=== PATIENT | female | born 1950 | race Caucasian/White ===

== ENCOUNTER 2020-01-26 01:11 | Outpatient (CLI) | payer MEDICARE, SELFPAY ==
[2020-01-26 17:58] LABS: SARS-CoV-2 RNA PCR Negative
== END 2020-01-26 01:12 | disposition home or self-care (01) ==
LOC: ANHCOVIDDT 01:11
PROVIDERS: PCP Internal Medicine; Visit Provider Internal Medicine Gastroenterology
DX: Z01.812 Encounter for preprocedural laboratory examination (principal); Z20.828 Contact with and (suspected) exposure to other viral communicable diseases
CPT/HCPCS: 87635; C9803; U0003

== ENCOUNTER 2020-01-29 01:14 | Day surgery (SDC) | payer MEDICARE, SELFPAY ==
[2020-01-22 14:05] VITALS: BMI 29.2
--- NOTE | 2020-01-27 10:11 | WPDANESEPP ---
Anes - Eval Pre Procedure Procedure: Operation Date: 01/29/20 07:30 Proposed Procedures p Screening Colonoscopy - Doyle Diego MD Date/Time: 01/27/20 10:11 Pre Op Diagnosis: Hx of Colon Polyps Patient Data Age: 69 Gender: F Height: 1.6 m Weight: 75 kg Allergies Allergy/AdvReac Type Severity Reaction Status Date / Time amoxicillin Allergy Intermediate Diarrhea Verified 12/27/19 10:34 potassium chloride AdvReac Intermediate dyspepsia Verified 12/27/19 10:34 Home Medications Medication Instructions Recorded Confirmed Type aspirin 81 mg tablet,delayed 81 mg PO DAILY 03/21/19 01/22/20 History release atorvastatin 20 mg tablet 20 mg PO DAILY #90 tablet 03/21/19 01/22/20 Rx hydrochlorothiazide 25 mg tablet 25 mg PO DAILY #90 tablet 04/06/19 01/22/20 Rx losartan 100 mg tablet 100 mg PO DAILY #90 tablet 04/06/19 01/22/20 Rx esomeprazole magnesium 40 mg 40 mg PO DAILY #90 cap 05/16/19 01/22/20 Rx capsule,delayed release amlodipine 10 mg tablet 10 mg PO DAILY #90 tablet 05/31/19 01/22/20 Rx biotin 5,000 mcg SUBLINGUAL DAILY 01/22/20 01/22/20 History calcium carbonate [Antacid Calcium] 215 mg PO HS PRN 01/22/20 01/22/20 History cholecalciferol (vitamin D3) 25 mcg PO WEEKLY 01/22/20 01/22/20 History [Vitamin D3] Patient hx anesthesia problems: none Family hx anesthesia problems: none PMFSH Past Medical History Medical History HTN (hypertension) Smoking history Surgical History Surgical History H/O tubal ligation Family History Family History Sibling Patient's sister is in good health Acute myocardial infarction, Onset Age: 72 Mother Family history of congestive heart failure, Onset Age: 83 Father Acute myocardial infarction, Onset Age: 67 Other Family history of cardiovascular disease Family history of mental disorder Social History Social History Years smoked: 40 Smoking status: Former smoker Tobacco type: cigarettes Second hand tobacco smoke exposure: No Smoking end date: 04/25/13 Alcohol intake: former Substance use: unknown Substance use type: does not use Exam Day of Procedure 01/27/20 10:11
[2020-01-29 06:32] VITALS: BP 149/69; PULSE 78; RESP 18; TEMP 36.6; O2SAT 98
--- NOTE | 2020-01-29 06:56 | SUR.PREOP ---
ATTEMPTED IV ACEESS UNSUCCESSFULLY X2. CRN AWARE. BUS DISPATCHER INTERSTATE TO BE HERE AT 0730 TO START IV.
--- NOTE | 2020-01-29 07:12 | WPDANESEPPF ---
Anes - Initial Pre Proc Eval Procedure: Operation Date: 01/29/20 07:30 Proposed Procedures p Screening Colonoscopy - Doyle Diego MD Date/Time: 01/29/20 07:12 Surgeon: Doyle Diego MD Pre Op Diagnosis: Hx of Colon Polyps Patient Data Age: 69 Gender: F Height: 5 ft 3 in Weight: 67 kg Last Vital Signs Temp 97.9 F 01/29/20 06:32 Pulse 78 01/29/20 06:32 Resp 18 01/29/20 06:32 BP 149/69 H 01/29/20 06:32 Pulse Ox 98 01/29/20 06:32 Allergies Allergy/AdvReac Type Severity Reaction Status Date / Time No Known Allergies Allergy Verified 01/29/20 06:24 Home Medications Medication Instructions Recorded Confirmed Type aspirin 81 mg tablet,delayed 81 mg PO DAILY 03/21/19 01/29/20 History release atorvastatin 20 mg tablet 20 mg PO DAILY #90 tablet 03/21/19 01/29/20 Rx hydrochlorothiazide 25 mg tablet 25 mg PO DAILY #90 tablet 04/06/19 01/29/20 Rx losartan 100 mg tablet 100 mg PO DAILY #90 tablet 04/06/19 01/29/20 Rx esomeprazole magnesium 40 mg 40 mg PO DAILY #90 cap 05/16/19 01/29/20 Rx capsule,delayed release amlodipine 10 mg tablet 10 mg PO DAILY #90 tablet 05/31/19 01/29/20 Rx biotin 5,000 mcg SUBLINGUAL DAILY 01/22/20 01/29/20 History calcium carbonate [Antacid Calcium] 215 mg PO HS PRN 01/22/20 01/29/20 History cholecalciferol (vitamin D3) 25 mcg PO WEEKLY 01/22/20 01/29/20 History [Vitamin D3] Patient hx anesthesia problems: none Family hx anesthesia problems: none PMFSH Past Medical History Medical History HTN (hypertension) Smoking history Surgical History Surgical History H/O tubal ligation Family History Family History Sibling Patient's sister is in good health Acute myocardial infarction, Onset Age: 72 Mother Family history of congestive heart failure, Onset Age: 83 Father Acute myocardial infarction, Onset Age: 67 Other Family history of cardiovascular disease Family history of mental disorder Social History Social History Years smoked: 40 Smoking status: Former smoker Tobacco type: cigarettes Second hand tobacco smoke exposure: No Smoking end date: 04/25/13 Alcohol intake: former Alcohol use details: Rarely Drinks Substance use: unknown Substance use type: does not use Living arrangements: with family Anes - Eval Final PreProcedure Day of Procedure 01/29/20 07:12 Patient weight: obese Heart: regular rate and rhythm Lungs: clear to auscultation Airway: Mallampati scale class II Neurological: alert and oriented Last oral intake: >/= 8 hours ASA classification: III Emergent: no Anesthetic plan: proceed Anesthesia type and monitoring: general GIVS and standard monitoring Informed Consent: The patient's anesthetic plan and its attendant risks and benefits were discussed with the patient/family/POA. Questions were solicited and answers provided to the satisfaction of the patient/family/POA.
--- NOTE | 2020-01-29 07:30 | WPDGICN ---
Assessment and Plan Assessment and plan (1) Hx of colonic polyps: Code(s): Z86.010 - Personal history of colonic polyps Status: Acute Assessment and Plan: Patient has a history of a tubular adenomatous colon polyp removed from colonoscopy while in [place] in 1999 15. Plan is for surveillance colonoscopy at this time. Continued evaluation in approximately 5 year intervals is advised. GI Consult Note Consult date/time: 01/29/20 07:30 HPI: Genie Monge is a 69 year old female Seen in evaluation at the request of Dr. Wm. Acosta. Patient has a history of colon polyps in 2014 while in [place]. Adenomatous colon polyps were identified. Patient presents today for follow-up examination. Her current weight appetite bowel movements are normal. She denies abdominal pain. She has had no bleeding. Family history is noncontributory. Review of Systems Review of Systems: All systems reviewed & are unremarkable except as noted in HPI and below PMFSH Past Medical History Medical History HTN (hypertension) Smoking history Surgical History Surgical History H/O tubal ligation Family History Family History Sibling Patient's sister is in good health Acute myocardial infarction, Onset Age: 72 Mother Family history of congestive heart failure, Onset Age: 83 Father Acute myocardial infarction, Onset Age: 67 Other Family history of cardiovascular disease Family history of mental disorder Social History Social History Years smoked: 40 Smoking status: Former smoker Tobacco type: cigarettes Second hand tobacco smoke exposure: No Smoking end date: 04/25/13 Alcohol intake: former Alcohol use details: Rarely Drinks Substance use: unknown Substance use type: does not use Living arrangements: with family Meds Home Medications and Allergies Home Medications Medication Instructions Recorded Confirmed Type aspirin 81 mg tablet,delayed 81 mg PO DAILY 03/21/19 01/29/20 History release atorvastatin 20 mg tablet 20 mg PO DAILY #90 tablet 03/21/19 01/29/20 Rx hydrochlorothiazide 25 mg tablet 25 mg PO DAILY #90 tablet 04/06/19 01/29/20 Rx losartan 100 mg tablet 100 mg PO DAILY #90 tablet 04/06/19 01/29/20 Rx esomeprazole magnesium 40 mg 40 mg PO DAILY #90 cap 05/16/19 01/29/20 Rx capsule,delayed release amlodipine 10 mg tablet 10 mg PO DAILY #90 tablet 05/31/19 01/29/20 Rx biotin 5,000 mcg SUBLINGUAL DAILY 01/22/20 01/29/20 History calcium carbonate [Antacid Calcium] 215 mg PO HS PRN 01/22/20 01/29/20 History cholecalciferol (vitamin D3) 25 mcg PO WEEKLY 01/22/20 01/29/20 History [Vitamin D3] Allergies Allergy/AdvReac Type Severity Reaction Status Date / Time No Known Allergies Allergy Verified 01/29/20 06:24 Vital Signs Vital Signs - 24 hr 01/29/20 06:32 Temperature 97.9 F Pulse Rate 78 Respiratory Rate 18 Blood Pressure 149/69 H Pulse Oximetry 98 Exam Narrative: Exam Narrative: Physical exam reveals patient to be alert. Vital signs stable. HEENT exam unremarkable. Lungs are clear to auscultation and percussion. Heart is without murmur or extra sounds. Abdominal exam bowel sounds are present soft nontender with no organomegaly. Digital external rectal exam normal.
[2020-01-29] MEDS: LACTATED RINGERS 1,000 ML 150 ML IV CONT (07:31)
[2020-01-29 07:50] VITALS: BP 110/53; PULSE 95; RESP 16; O2SAT 96
[2020-01-29 08:00] VITALS: BP 124/56; PULSE 88; RESP 14; O2SAT 97
[2020-01-29 08:10] VITALS: BP 139/76; PULSE 82; RESP 16; O2SAT 97
== END 2020-01-29 08:21 | disposition home or self-care (01) ==
PROVIDERS: PCP Internal Medicine; Visit Provider Internal Medicine Gastroenterology
PROC: 0DJD8ZZ Inspection of Lower Intestinal Tract, Via Natural or Artificial Opening Endoscopic (ICD-10-PCS; CPT 45378; principal; 2020-01-29 07:30)
DX: Z12.11 Encounter for screening for malignant neoplasm of colon (principal); I10 Essential (primary) hypertension; Z86.010 Personal history of colon polyps; Z87.891 Personal history of nicotine dependence; E66.9 Obesity, unspecified; Z68.26 Body mass index [BMI] 26.0-26.9, adult; D12.2 Benign neoplasm of ascending colon; K64.8 Other hemorrhoids
CPT/HCPCS: 45385; 88305; J2704; J7120

== ENCOUNTER → 2020-03-27 12:02 | Outpatient (CLI) | payer MEDICARE, SELFPAY ==
--- NOTE | ~2020-03-27 | MM_ITS ---
EXAMINATION: MM scrn aparna implant BI w skinny HISTORY: Screening mammogram TECHNIQUE: Craniocaudal and mediolateral oblique 3-D tomosynthesis images with implant displacement a nd synthetic 2-D images were generated. Craniocaudal and mediolateral oblique views of the breasts wi thout implant displacement were obtained using full field digital mammography. CAD analysis was submi tted and interpreted. COMPARISON: 02/10/2019, , 06/06/2014 bilateral implant digital screening mammogram examination s BREAST PARENCHYMAL COMPOSITION: The breasts are heterogeneously dense, which may obscure small masses . FINDINGS: Status post bilateral augmentation mammoplasty. There is no evidence of suspicious mass, ca lcification, or architectural distortion to suggest malignancy in either breast. There has been no martinez spicious interval change. IMPRESSION: 1. No mammographic evidence of malignancy. 2. Recommend routine screening mammography in one year. BI-RADS Category 1: Negative Reviewed, dictated and finalized at location A. OGRAPHY INTERN
== END ==
PROVIDERS: Visit Provider Internal Medicine
DX: Z12.31 Encounter for screening mammogram for malignant neoplasm of breast (principal)
CPT/HCPCS: 77063; 77067

== ENCOUNTER → 2020-07-18 10:28 | Outpatient (CLI) | payer MEDICARE, SELFPAY ==
--- NOTE | ~2020-07-18 | DEXA_ITS ---
Bone Density Report Name: Genie Monge Age: 70 Sex: Female Ethnicity: White Date of : 1950 Indication: osteopenia; height loss; postmenopausal Referring Provider: HEATHER JAY Study: Bone densitometry was performed. Exam Date: July 18, 2020 Accession number: [id number] Bone Density: Region BMD T-score Z-score Classification AP Spine (L1-L4) 0.877 -1.5 0.6 Osteopenia Femoral Neck (Left) 0.645 -1.8 0.0 Osteopenia Total Hip (Left) 0.760 -1.5 0.1 Osteopenia Femoral Neck (Right) 0.735 -1.0 0.8 Normal Total Hip (Right) 0.784 -1.3 0.3 Osteopenia Total Hip Mean 0.772 -1.4 0.2 Osteopenia World Health Organization criteria for BMD impression classify patients as: Normal (T-score at or above -1.0), Osteopenia (T-score between -1.0 and -2.5), or Osteoporosis (T-score at or below -2.5). 10-year Fracture Risk(1): Major Osteoporotic Fracture 11% Hip Fracture 2.0% Reported Risk Factors: [place] (), Neck BMD=0.645, BMI=29.5 (1) FRAX(R) Version 3.08. Fracture probability calculated for an untreated patient. Fracture probability may be lower if the patient has received treatment. Previous Exams: Region Exam Age BMD T-score BMD Change BMD Change Date g/cm2 vs Baseline vs Previous AP Spine(L1-L4) 07/18/2020 70 0.877 -1.5 -0.003 -0.003 04/01/2010 59 0.879 -1.5 Total Hip(Left) 07/18/2020 70 0.760 -1.5 -0.050 0.025 04/01/2010 59 0.735 -1.7 -0.075 -0.075 03/20/2002 51 0.810 -1.1 Total Hip(Right) 07/18/2020 70 0.784 -1.3 -0.016 -0.012 04/01/2010 59 0.796 -1.2 -0.003 -0.003 03/20/2002 51 0.799 -1.2 *Denotes significance at 95% confidence level, LSC for AP Spine = 0.022 g/cm2, LSC for Total Hip = 0.027 g/cm2 Clinical Information Provided by Patient: Has used the following medications: Vitamin D Patient maximum height was 64 Menopause Age: 46 No regular weight bearing exercise Does not regularly consume dairy products Drinks caffeinated beverages Onset of menses at age 11 Number of children 2 Impression: The patient has low bone mass, based on the Left Femoral Neck T-score. The patient has an estimated ten-year risk of hip fracture of 2% and an estimated ten-year risk of major fracture of 11%, based on the WHO FRAX algorithm. No significant bone loss was observed. Discussion: BONE DENSITY IS LOW AT ONE O
== END ==
PROVIDERS: PCP Internal Medicine; Visit Provider Internal Medicine
DX: Z78.0 Asymptomatic menopausal state (principal); M85.88 Other specified disorders of bone density and structure, other site; M85.852 Other specified disorders of bone density and structure, left thigh; M85.851 Other specified disorders of bone density and structure, right thigh
CPT/HCPCS: 77080

== ENCOUNTER → 2021-06-30 12:10 | Outpatient (CLI) | payer MEDICARE, SELFPAY ==
--- NOTE | ~2021-06-30 | MM_ITS ---
EXAMINATION: MM scrn aparna implant BI w skinny HISTORY: Screening mammogram TECHNIQUE: Craniocaudal and mediolateral oblique 3-D tomosynthesis images with implant displacement a nd synthetic 2-D images were generated. Craniocaudal and mediolateral oblique views of the breasts wi thout implant displacement were obtained using full field digital mammography. CAD analysis was submi tted and interpreted. COMPARISON: Comparison to multiple prior studies sequentially, with oldest reviewed study dated 05/11. BREAST PARENCHYMAL COMPOSITION: There are scattered areas of fibroglandular density. FINDINGS: There is no evidence of suspicious mass, calcification, or architectural distortion to sugg est malignancy in either breast. There has been no suspicious interval change. IMPRESSION: 1. No mammographic evidence of malignancy. 2. Recommend routine screening mammography in one year. BI-RADS Category 1: Negative Reviewed, dictated and finalized at location A. E ATTENDANT
== END ==
PROVIDERS: PCP Internal Medicine; Visit Provider Internal Medicine
DX: Z12.31 Encounter for screening mammogram for malignant neoplasm of breast (principal)
CPT/HCPCS: 77063; 77067

== ENCOUNTER 2022-07-27 09:30 | Outpatient (CLI) | payer MEDICARE, SELFPAY ==
[2022-07-27 21:01] LABS: Alanine Aminotransferase 23 U/L (6-35); Albumin Level 4.9 g/dL (3.5-5.1); Alkaline Phosphatase 99 U/L (38-126); Anion Gap 8 mmol/L (8-16); Aspartate Amino Transferase 37 U/L (14-36); Bilirubin,Total 0.6 mg/dL (0.2-1.3); Blood Urea Nitrogen 25 mg/dL (7-17); Calcium 10.5 mg/dL (8.4-10.2); Carbon Dioxide 30 mmol/L (22-30); Chloride 100 mmol/L (98-107); Cholesterol 182 mg/dL (0-200); Estimated Glomerular Filt Rate > 60; Glucose 88 mg/dL (65-110); HDL Direct 53 mg/dL; Potassium 3.1 mmol/L (3.4-5.0); Sodium 138 mmol/L (137-145); Triglycerides 108 mg/dL (<150)
[2022-07-27 21:12] LABS: LDL Cholesterol Direct 83 mg/dL
[2022-07-27 21:34] LABS: Thyroid Stimulating Hormone Reflex 0.017 uIU/mL (0.465-4.68)
[2022-07-27 22:12] LABS: Free T4 Free Thyroxine Reflex 1.44 ng/dL (0.78-2.19)
[2022-07-28 05:01] LABS: Total Triiodothyronine (T3) 1.54 NG/ML (0.97-1.69)
== END 2022-07-27 09:31 | disposition home or self-care (01) ==
LOC: ANHASCLAB 09:32 → ANHGOSHLAB 09:48
PROVIDERS: PCP Family Medicine; Visit Provider Family Medicine
DX: I10 Essential (primary) hypertension (principal); Z13.29 Encounter for screening for other suspected endocrine disorder; Z13.220 Encounter for screening for lipoid disorders
CPT/HCPCS: 36415; 80053; 80061; 84439; 84443; 84480

== ENCOUNTER 2022-08-05 07:04 | Outpatient (CLI) | payer MEDICARE, SELFPAY ==
--- NOTE | ~2022-08-05 | NM_ITS ---
EXAMINATION: NM thyroid scan w uptake DATE: 08/06/2022 12:11 INDICATION: Hyperthyroidism. Thyrotoxicosis. COMPARISON: Chest CT 05/19/2018 TECHNIQUE: 0.462 mCi I-123 was administered orally. Scintigraphic images of the thyroid gland were o btained at 24 hours. Thyroid uptake was calculated by the technologist. FINDINGS: The thyroid uptake is 29% (normal 10-30%), with the right lobe measuring 18% uptake and the left 12%. There is no focal area of decreased or increased activity to suggest hypofunctioning or hyperfunctio geno nodule. IMPRESSION: 1. Normal thyroid scintigraphy and 24-hour iodine uptake. Reviewed, dictated and finalized at location A.
== END 2022-08-05 07:05 | disposition home or self-care (01) ==
PROVIDERS: PCP Family Medicine; Visit Provider Family Medicine
DX: E05.90 Thyrotoxicosis, unspecified without thyrotoxic crisis or storm (principal)
CPT/HCPCS: 78014; A9516

== ENCOUNTER → 2022-08-10 11:44 | Outpatient (CLI) | payer MEDICARE, SELFPAY ==
--- NOTE | ~2022-08-10 | MM_ITS ---
EXAMINATION: MM scrn aparna implant BI w skinny HISTORY: Screening mammogram TECHNIQUE: Craniocaudal and mediolateral oblique 3-D tomosynthesis images with implant displacement a nd synthetic 2-D images were generated. Craniocaudal and mediolateral oblique views of the breasts wi thout implant displacement were obtained using full field digital mammography. CAD analysis was submi tted and interpreted. COMPARISON: 06/30/2021, 03/27/2020, 01/31/2019 BREAST PARENCHYMAL COMPOSITION: The breasts are heterogeneously dense, which may obscure small masses . FINDINGS: There is no evidence of suspicious mass, calcification, or architectural distortion to sugg est malignancy in either breast. There has been no suspicious interval change. IMPRESSION: 1. No mammographic evidence of malignancy. 2. Recommend routine screening mammography in one year. BI-RADS Category 1: Negative Reviewed, dictated and finalized at location A.
== END ==
PROVIDERS: PCP Family Medicine; Visit Provider Family Medicine
DX: Z12.31 Encounter for screening mammogram for malignant neoplasm of breast (principal)
CPT/HCPCS: 77063; 77067

== ENCOUNTER 2022-09-17 09:50 | Outpatient (CLI) | payer MEDICARE, SELFPAY ==
[2022-09-17 11:53] LABS: Anion Gap 8 mmol/L (8-16); Blood Urea Nitrogen 22 mg/dL (7-17); Calcium 9.7 mg/dL (8.4-10.2); Carbon Dioxide 29 mmol/L (22-30); Chloride 103 mmol/L (98-107); Estimated Glomerular Filt Rate > 60; Glucose 86 mg/dL (65-110); Potassium 3.4 mmol/L (3.4-5.0); Sodium 140 mmol/L (137-145)
[2022-09-17 12:25] LABS: Thyroid Stimulating Hormone Reflex 0.028 uIU/mL (0.465-4.68)
[2022-09-17 14:48] LABS: Free T4 Free Thyroxine Reflex 1.48 ng/dL (0.78-2.19)
[2022-09-17 16:06] LABS: Total Triiodothyronine (T3) 1.63 NG/ML (0.97-1.69)
== END 2022-09-17 09:51 | disposition home or self-care (01) ==
LOC: ANHGOSHLAB 09:51
PROVIDERS: PCP Family Medicine; Visit Provider Family Medicine
DX: Z13.29 Encounter for screening for other suspected endocrine disorder (principal); E87.6 Hypokalemia
CPT/HCPCS: 36415; 80048; 84439; 84443; 84480

== ENCOUNTER → 2022-10-12 10:23 | Outpatient (CLI) | payer MEDICARE, SELFPAY ==
--- NOTE | ~2022-10-12 | DEXA_ITS ---
Bone Density Report Name: KIRA GRANGER Age: 72 Sex: Female Ethnicity: White Date of : 1950 Indication: osteopenia; postmenopausal Referring Provider: DEVIN PABLO Study: Bone densitometry was performed. Exam Date: October 12, 2022 Accession number: [id number] Bone Density: Region BMD T-score Z-score Classification AP Spine (L1-L4) 0.906 -1.3 1.0 Osteopenia Femoral Neck (Left) 0.623 -2.0 0.0 Osteopenia Total Hip (Left) 0.721 -1.8 -0.1 Osteopenia Femoral Neck (Right) 0.754 -0.9 1.1 Normal Total Hip (Right) 0.760 -1.5 0.2 Osteopenia Total Hip Mean 0.741 -1.7 0.1 Osteopenia World Health Organization criteria for BMD impression classify patients as: Normal (T-score at or above -1.0), Osteopenia (T-score between -1.0 and -2.5), or Osteoporosis (T-score at or below -2.5). 10-year Fracture Risk(1): Major Osteoporotic Fracture 13% Hip Fracture 3.1% Reported Risk Factors: [place] (), Neck BMD=0.623, BMI=26.6 (1) FRAX(R) Version 3.08. Fracture probability calculated for an untreated patient. Fracture probability may be lower if the patient has received treatment. Previous Exams: Region Exam Age BMD T-score BMD Change BMD Change Date g/cm2 vs Baseline vs Previous AP Spine(L1-L4) 10/12/2022 72 0.906 -1.3 0.027* 0.029* 07/18/2020 70 0.877 -1.5 -0.003 -0.003 04/01/2010 59 0.879 -1.5 Total Hip(Left) 10/12/2022 72 0.721 -1.8 -0.089 -0.039* 07/18/2020 70 0.760 -1.5 -0.050 0.025 04/01/2010 59 0.735 -1.7 -0.075 -0.075 03/20/2002 51 0.810 -1.1 Total Hip(Right) 10/12/2022 72 0.760 -1.5 -0.040 -0.024 07/18/2020 70 0.784 -1.3 -0.016 -0.012 04/01/2010 59 0.796 -1.2 -0.003 -0.003 03/20/2002 51 0.799 -1.2 *Denotes significance at 95% confidence level, LSC for AP Spine = 0.022 g/cm2, LSC for Total Hip = 0.027 g/cm2 Clinical Information Provided by Patient: Has used the following medications: Vitamin D Patient maximum height was 64.0 Menopause Age: 46 No regular weight bearing exercise Drinks caffeinated beverages Onset of menses at age 11 Number of children 2 Impression: The patient has low bone mass, based on the Left Femoral Neck T-score. The patient has an estimated ten-year risk of hip fracture of 3.1% and an estimated ten-year risk of
== END ==
PROVIDERS: PCP Family Medicine; Visit Provider Family Medicine
DX: Z78.0 Asymptomatic menopausal state (principal); M85.88 Other specified disorders of bone density and structure, other site; Z13.820 Encounter for screening for osteoporosis
CPT/HCPCS: 77080

== ENCOUNTER 2023-08-04 11:26 | Outpatient (CLI) | payer MEDICARE, SELFPAY ==
[2023-08-04 14:57] LABS: Alanine Aminotransferase 22 U/L (6-35); Albumin Level 4.5 g/dL (3.5-5.1); Alkaline Phosphatase 92 U/L (38-126); Anion Gap 7 mmol/L (4-12); Aspartate Amino Transferase 34 U/L (14-36); Bilirubin,Total 0.7 mg/dL (0.2-1.3); Blood Urea Nitrogen 20 mg/dL (7-17); Calcium 10.5 mg/dL (8.4-10.2); Carbon Dioxide 29 mmol/L (22-30); Chloride 103 mmol/L (98-107); Cholesterol 146 mg/dL (0-200); Estimated Glomerular Filt Rate > 60; Glucose 95 mg/dL (65-110); HDL Direct 47 mg/dL; Potassium 3.5 mmol/L (3.4-5.0); Sodium 139 mmol/L (137-145); Triglycerides 118 mg/dL (<150)
[2023-08-04 15:08] LABS: LDL Cholesterol Direct 78 mg/dL
[2023-08-04 20:36] LABS: Thyroid Stimulating Hormone Reflex < 0.015 uIU/mL (0.465-4.68)
[2023-08-04 21:34] LABS: Free T4 Free Thyroxine Reflex 1.69 ng/dL (0.78-2.19)
== END 2023-08-04 11:27 | disposition home or self-care (01) ==
LOC: ANHGOSHLAB 11:27
PROVIDERS: PCP Family Medicine; Visit Provider Family Medicine
DX: I10 Essential (primary) hypertension (principal); Z13.228 Encounter for screening for other metabolic disorders; Z13.220 Encounter for screening for lipoid disorders; Z13.29 Encounter for screening for other suspected endocrine disorder
CPT/HCPCS: 36415; 80053; 80061; 84439; 84443; 84480

== ENCOUNTER 2023-08-16 09:17 | Outpatient (CLI) | payer MEDICARE, SELFPAY | END 2023-08-16 09:18 | disposition home or self-care (01) | LOC: ANHGOSHLAB 09:18 | PROVIDERS: Visit Provider Family Medicine | DX: R79.89 Other specified abnormal findings of blood chemistry (principal); I10 Essential (primary) hypertension | CPT/HCPCS: 36415; 84443 ==

== ENCOUNTER 2023-08-16 09:59 | Outpatient (CLI) | payer MEDICARE, SELFPAY ==
--- NOTE | ~2023-08-16 | MM_ITS ---
EXAMINATION: MM scrn aparna implant BI w skinny HISTORY: Screening mammogram TECHNIQUE: Craniocaudal and mediolateral oblique 3-D tomosynthesis images with implant displacement a nd synthetic 2-D images were generated. Craniocaudal and mediolateral oblique views of the breasts wi thout implant displacement were obtained using full field digital mammography. CAD analysis was submi tted and interpreted. COMPARISON: August 10, 2022, June 30, 2021 bilateral implant screening mammogram examinations BREAST PARENCHYMAL COMPOSITION: The breasts are heterogeneously dense, which may obscure small masses . FINDINGS: Status post bilateral augmentation mammoplasty. Scattered bilateral benign calcifications. There is suggestion of subtle retraction in the left nipple area. Diagnostic left mammogram is recomm ended, with ultrasound if required. Otherwise there is no evidence of suspicious mass, calcification, or architectural distortion to sugg est malignancy in either breast. There has been no other suspicious interval change. IMPRESSION: 1. Subtle nipple area retraction suggested on the left 2. Diagnostic left mammogram is recommended, with ultrasound if required BI-RADS Category 0: Incomplete: Needs additional imaging evaluation. Reviewed, dictated and finalized at location A.
== END 2023-08-16 10:00 ==
PROVIDERS: PCP Family Medicine; Visit Provider Family Medicine
DX: Z12.31 Encounter for screening mammogram for malignant neoplasm of breast (principal); R92.8 Other abnormal and inconclusive findings on diagnostic imaging of breast
CPT/HCPCS: 77063; 77067

== ENCOUNTER 2023-09-16 08:13 | Outpatient (CLI) | payer MEDICARE, SELFPAY ==
--- NOTE | ~2023-09-16 | MMUS_ITS ---
EXAMINATION: MM diag aparna implant LT w skinny, US breast LT complete HISTORY: Nipple retraction TECHNIQUE: Implant left ML view. Additional 3-D tomosynthesis images of the left breast were performe d and synthetic 2-D images were generated. CAD analysis was submitted and interpreted. High resolutio n complete left breast ultrasound examination including all 4 quadrants and subareolar area was perfo rmed. COMPARISON: 07/31/2022, 06/30/2021, 03/27/2020, 01/31/2019, 11/24/2017 bilateral implants screening mammogram examinations FINDINGS: MAMMOGRAPHIC FINDINGS: No definite significant change is noted compared to prior mammograms dating back to 11/24/2017. ULTRASOUND: No focal suspicious mass or shadowing is evident. IMPRESSION: 1. Probable benign examinations 2. Six-month diagnostic left mammogram and left breast ultrasound follow-up are recommended BI-RADS category 3, probably benign findings. Reviewed, dictated and finalized at location B. IMPRESSION: 1. Probable benign examinations 2. Six-month diagnostic left mammogram and left breast ultrasound follow-up are recommended BI-RADS category 3, probably benign findings.
== END 2023-09-16 08:14 ==
LOC: MICIMG 08:14
PROVIDERS: PCP Family Medicine; Visit Provider Family Medicine
DX: N64.53 Retraction of nipple (principal); R92.8 Other abnormal and inconclusive findings on diagnostic imaging of breast
CPT/HCPCS: 76641; 77061; 77065; G0279

== ENCOUNTER 2023-10-11 00:29 | Day surgery (SDC) | payer MEDICARE, SELFPAY ==
[2023-09-28 13:41] VITALS: BMI 26.5
[2023-10-11 11:22] VITALS: BP 159/62; PULSE 69; RESP 16; TEMP 36.4; O2SAT 100
[2023-10-11] MEDS: LACTATED RINGERS 1,000 ML 150 ML IV CONT (11:25)
--- NOTE | 2023-10-11 12:44 | WPDANESEPPF ---
Anes - Initial Pre Proc Eval Procedure: Operation Date: 10/11/23 12:30 Proposed Procedures p Esophagogastroduodenoscopy - Andrew Looney MD Date/Time: 10/11/23 12:44 Surgeon: Andrew Looney MD Pre Op Diagnosis: GERD without esophagitis Patient Data Age: 73 Gender: F Height: 1.6 m Weight: 68.9 kg Last Vital Signs Temp 36.4 C L 10/11/23 11:22 Pulse 69 10/11/23 11:22 Resp 16 10/11/23 11:22 BP 159/62 H 10/11/23 11:22 Pulse Ox 100 10/11/23 11:22 O2 Del Method Room Air 10/11/23 11:22 Allergies Allergy/AdvReac Type Severity Reaction Status Date / Time No Known Allergies Allergy Verified 10/11/23 11:17 Home Medications Medication Instructions Recorded Confirmed Type aspirin 81 mg tablet,delayed 81 mg PO DAILY 03/21/19 10/11/23 History release (Adult Aspirin Regimen) biotin 5,000 mcg sublingual tablet 5,000 mcg sublingual DAILY 01/22/20 10/11/23 History atorvastatin 20 mg tablet See Rx Instructions .Route 02/15/23 10/11/23 Rx .COMPLEX #90 tabs pantoprazole 40 mg tablet,delayed 40 mg PO QAM #90 tabs 02/15/23 10/11/23 Rx release losartan 100 mg tablet 100 mg PO DAILY #100 tabs 05/16/23 10/11/23 Rx hydrochlorothiazide 25 mg tablet 25 mg PO DAILY #100 tabs 08/08/23 10/11/23 Rx minoxidil 5 % topical foam See Rx Instructions topical 08/11/23 10/11/23 Rx .COMPLEX #60 grams amlodipine 10 mg tablet See Rx Instructions .Route 09/13/23 10/11/23 Rx .COMPLEX #90 tabs famotidine 40 mg tablet 40 mg PO QHS #90 tabs 09/22/23 10/11/23 Rx calcium citrate 600 mg PO BID 09/28/23 10/11/23 History cholecalciferol (vitamin D3) 125 125 mcg PO DAILY 09/28/23 10/11/23 History mcg (5,000 unit) tablet (Vitamin D3) Patient hx anesthesia problems: none Family hx anesthesia problems: none Results Review: All pre-operative results and documents have been reviewed as part of the pre-operative evaluation. [facility] Past Medical History Medical History HTN (hypertension) Retraction of left nipple Smoking history Surgical History Surgical History (Updated 10/11/23 @ 12:44 by Jesus Yeager MD) H/O breast augmentation H/O tubal ligation Family History Family History Sibling Patient's sister is in good health Acute myocardial infarction, Onset Age: 72 Mother Family history of congestive heart failure, Onset Age: 83 Father Acute myocardial infarction, Onset Age: 67 Other Family history of cardiovascular disease Family history of mental disorder Social History Social History Years smoked: 30 Smoking status: Former smoker Tobacco type: cigarettes Second hand tobacco smoke exposure: No Smoking end date: 04/25/13 Alcohol intake: former Alcohol use details: Rarely Drinks Substance use: current Substance use type: marijuana Other substance usage details: Gummies for sleep Lack of Transportation: No Lack of Food: Never True Current Housing: I Have Housing Concerned About Future Housing: No Difficulty Paying Gas/Electric Bills: No Difficulty Paying for Meds: No Currently Unemployed: No Education: High School Diploma/GED Difficulty w/ Childcare or Family Care: No Living arrangements: with family Spiritual care concerns: No Anes - Eval Final PreProcedure Day of Procedure 10/11/23 12:44 Patient weight: overweight Heart: regular rate and rhythm Lungs: clear to auscultation Airway: Mallampati scale class II Neurological: alert and oriented Last oral intake: >/= 8 hours ASA classification: III Emergent: no Anesthetic plan: proceed Anesthesia type and monitoring: general GIVS and standard monitoring Results Review: All pre-operative results and documents have been reviewed as part of the pre-operative evaluation. Informed Consent: The patient's anestheti
--- NOTE | 2023-10-11 13:25 | SUR.PREOP ---
1230 Patient updated on procedure delay- denies any needs at this time.
--- NOTE | 2023-10-11 13:52 | PM.HPGS ---
History of Present Illness History of Present Illness Consent: Risks, benefits, and alternatives have been discussed and questions answered. Patient agrees to proceed with procedure. Chief complaint: GERD without esophagitis Narrative: Genie Monge is a 73 year old female with gerd on ppi, worse symptoms at night when lying down in bed, last EGD 8 years ago and had hiatal hernia Review of Systems Review of Systems: All systems reviewed & are unremarkable except as noted in HPI and below PMFSH Past Medical History Medical History HTN (hypertension) Retraction of left nipple Smoking history Surgical History Surgical History (Updated 10/11/23 @ 12:44 by Jesus Yeager MD) H/O breast augmentation H/O tubal ligation Family History Family History Sibling Patient's sister is in good health Acute myocardial infarction, Onset Age: 72 Mother Family history of congestive heart failure, Onset Age: 83 Father Acute myocardial infarction, Onset Age: 67 Other Family history of cardiovascular disease Family history of mental disorder Social History Social History Years smoked: 30 Smoking status: Former smoker Tobacco type: cigarettes Second hand tobacco smoke exposure: No Smoking end date: 04/25/13 Alcohol intake: former Alcohol use details: Rarely Drinks Substance use: current Substance use type: marijuana Other substance usage details: Gummies for sleep Lack of Transportation: No Lack of Food: Never True Current Housing: I Have Housing Concerned About Future Housing: No Difficulty Paying Gas/Electric Bills: No Difficulty Paying for Meds: No Currently Unemployed: No Education: High School Diploma/GED Difficulty w/ Childcare or Family Care: No Living arrangements: with family Spiritual care concerns: No Meds Home Medications and Allergies Home Medications Medication Instructions Recorded Confirmed Type aspirin 81 mg tablet,delayed 81 mg PO DAILY 03/21/19 10/11/23 History release (Adult Aspirin Regimen) biotin 5,000 mcg sublingual tablet 5,000 mcg sublingual DAILY 01/22/20 10/11/23 History atorvastatin 20 mg tablet See Rx Instructions .Route 02/15/23 10/11/23 Rx .COMPLEX #90 tabs pantoprazole 40 mg tablet,delayed 40 mg PO QAM #90 tabs 02/15/23 10/11/23 Rx release losartan 100 mg tablet 100 mg PO DAILY #100 tabs 05/16/23 10/11/23 Rx hydrochlorothiazide 25 mg tablet 25 mg PO DAILY #100 tabs 08/08/23 10/11/23 Rx minoxidil 5 % topical foam See Rx Instructions topical 08/11/23 10/11/23 Rx .COMPLEX #60 grams amlodipine 10 mg tablet See Rx Instructions .Route 09/13/23 10/11/23 Rx .COMPLEX #90 tabs famotidine 40 mg tablet 40 mg PO QHS #90 tabs 09/22/23 10/11/23 Rx calcium citrate 600 mg PO BID 09/28/23 10/11/23 History cholecalciferol (vitamin D3) 125 125 mcg PO DAILY 09/28/23 10/11/23 History mcg (5,000 unit) tablet (Vitamin D3) Allergies Allergy/AdvReac Type Severity Reaction Status Date / Time No Known Allergies Allergy Verified 10/11/23 11:17 Vital Signs Vital Signs - 24 hr 10/11/23 11:22 Temperature 97.5 F L Pulse Rate 69 Respiratory Rate 16 Blood Pressure 159/62 H Pulse Oximetry 100 Oxygen Delivery Room Air Exam Const: General: comfortable and no acute distress HENMT: Face/Nose/Sinus: Normal nares present Eyes: General: appearance normal, both eyes and all related structures Neck: Neck: no JVD Resp: Auscultation: clear to auscultation bilaterally Cardio: Rate: regular rate Rhythm: regular rhythm GI: Inspection: non-distended GI Palp: Yes Soft to palpation Skin: General skin exam: normal color Neuro: General: gait normal Speech: normal speech Extrem: General: normal to inspection Psych: Mental Status: mental status grossly normal Assessment a
[2023-10-11 14:14] VITALS: BP 108/51; PULSE 81; RESP 20; O2SAT 98
[2023-10-11 14:24] VITALS: BP 115/55; PULSE 82; RESP 20; O2SAT 100
[2023-10-11 14:34] VITALS: BP 129/60; PULSE 76; RESP 20; O2SAT 100
== END 2023-10-11 14:44 | disposition home or self-care (01) ==
PROVIDERS: PCP Family Medicine; Referring Provider Family Medicine; Visit Provider Internal Medicine Gastroenterology
PROC: 0DJ08ZZ Inspection of Upper Intestinal Tract, Via Natural or Artificial Opening Endoscopic (ICD-10-PCS; CPT 43235; principal; 2023-10-11 12:30)
DX: K29.50 Unspecified chronic gastritis without bleeding (principal); K29.70 Gastritis, unspecified, without bleeding; K21.9 Gastro-esophageal reflux disease without esophagitis; I10 Essential (primary) hypertension; Z87.891 Personal history of nicotine dependence; F12.90 Cannabis use, unspecified, uncomplicated; Z79.82 Long term (current) use of aspirin
CPT/HCPCS: 43239; 88305; J2704; J7120

== ENCOUNTER 2024-03-15 14:24 | Emergency (ER) | payer MEDICARE, SELFPAY ==
--- NOTE | 2024-03-15 14:48 | ED.URI ---
HPI - URI/Sore Throat General Chief Complaint: Upper Respiratory Infection Stated Complaint: cold symptoms Time Seen by Provider: 03/15/24 14:55 Source: patient, RN notes reviewed and old records reviewed Mode of arrival: ambulatory Limitations: no limitations History of Present Illness HPI Narrative: 73 year old female who presents to [facility] care with complaints of 10 day history of cough, sore throat, nasal congestion and drainage with no fevers noted. Patient reports that she has had some upper back discomfort with her cough. Patiet reports that she has taken some OTC night time cold and flu medication.Patient reports that she is feeling a little better but family nagged her to come and get check out. MD elicited complaint: cough, sore throat, rhinorrhea and nasal congestion Onset (ago): day(s) (10) Severity: moderate Able to tolerate fluids by mouth: Yes Treatments prior to arrival: other (night time cold and flu medication) Related Data Home Medications Medication Instructions Recorded Confirmed aspirin 81 mg tablet,delayed 81 mg PO DAILY 03/21/19 03/15/24 release (Adult Aspirin Regimen) biotin 5,000 mcg sublingual tablet 5,000 mcg sublingual DAILY 01/22/20 03/15/24 calcium citrate 600 mg PO BID 09/28/23 03/15/24 cholecalciferol (vitamin D3) 125 125 mcg PO DAILY 09/28/23 03/15/24 mcg (5,000 unit) tablet (Vitamin D3) Allergies Allergy/AdvReac Type Severity Reaction Status Date / Time No Known Allergies Allergy Verified 03/15/24 15:02 Review of Systems Review of Systems: CONSTITUTIONAL: Denies malaise, chills, sweats, or fever. EYES: Denies visual changes, redness, or discharge. ENT: Reports rhinorrhea, congestion, sinus pain, no otalgia and positive sore throat. CARDIOVASCULAR: Denies chest pain, palpitations, or edema. RESPIRATORY: Reports cough.? Denies dyspnea. states some upper back pain with cough GASTROINTESTINAL: Denies abdominal pain, nausea, vomiting, diarrhea SKIN: Denies rash or itching. MUSCULOSKELETAL: Denies myalgia. NEUROLOGIC: Denies headache. All systems reviewed & are unremarkable except as noted in HPI and below PMFSH Past Medical History Medical History Chronic GERD Dyslipidemia, goal LDL below 130 HTN (hypertension) Hx of colonic polyps Hx of skin malignancy Obstructive sleep apnea Retraction of left nipple Smoking history Surgical History Surgical History H/O breast augmentation H/O tubal ligation Family History Family History Sibling Patient's sister is in good health Acute myocardial infarction, Onset Age: 72 Mother Family history of congestive heart failure, Onset Age: 83 Father Acute myocardial infarction, Onset Age: 67 Other Family history of cardiovascular disease Family history of mental disorder Social History Social History Years smoked: 30 Smoking status: Former smoker Tobacco type: cigarettes Second hand tobacco smoke exposure: No Smoking end date: 04/25/13 Alcohol intake: former Alcohol use details: Rarely Drinks Substance use: current Substance use type: marijuana Other substance usage details: Gummies for sleep Lack of Transportation: No Lack of Food: Never True Current Housing: I Have Housing Concerned About Future Housing: No Difficulty Paying Gas/Electric Bills: No Difficulty Paying for Meds: No Currently Unemployed: No Education: High School Diploma/GED Difficulty w/ Childcare or Family Care: No Living arrangements: with family Spiritual care concerns: No Comments At time of signature, agree with nursing past medical, surgical, social and family history. There is no relevant family history pertinent to the presenting complaint Exam Narrative: GENERAL: Well-appearing, well-nourished, and in no acute distress. HEAD: Normocephalic EYES: PERRLA, conjunctivae clear ENT: Nares clear, turbinates edematous and erythematous, clear discharge. Mucous membranes moist. TM pearly pierce with dull light reflex bilaterally; no tragal tenderness. Oropharynx erythematous without lesions. Tonsils not enlarged and without exudate, no drooling, no hoarseness, no trismus, uvula midline.post nasal drainage noted NECK: Supple. No lymphadenopathy CHEST: Clear to auscultation, breath sounds equal. No wheezing, rhonchi, rales, or stridor. No respiratory distress, speaks in full sentences.cough noted, SAO2 99% on room air HEART: Regular rate and rhythm. No murmur heard. SKIN: Warm, dry, no rash. NEURO: Alert and oriented x3. PSYCH: Normal mood and affect Course Course Emergency Course: Patient is aware of diagnosis, understands and agrees to treatment plan.? Anticipatory guidance given.? Patient agrees to follow-up as directed and is aware of reasons to seek care at the emergency department. Portions of this record may have been created with voice recognition software Level of Care: Express Care Visit Vital Signs Vital signs: Vital Signs Temperature 36.8 C 03/15/24 14:50 Pulse Rate 94 03/15/24 14:50 Respiratory Rate 16 03/15/24 14:50 Blood Pressure 149/75 H 03/15/24 14:50 Pulse Oximetry 99 03/15/24 14:50 Temperature 36.8 C 03/15/24 14:50 Pulse Rate 94 03/15/24 14:50 Respiratory Rate 16 03/15/24 14:50 Blood Pressure 149/75 H 03/15/24 14:50 Pulse Oximetry 99 03/15/24 14:50 Reviewed MDM - URI/Sore Throat MDM Narrative Medical decision making narrative: Differential diagnosis considered: Millard virus, strep pharyngitis, allergic rhinitis, upper respiratory tract infection, sinusitis, rhinosinusitis, nasopharyngitis. viral pharyngitis, otitis media, otitis externa, pneumonia, bronchitis, viral cough syndrome, viral syndrome, and influenza.? Exam findings show no acute concerns or changes; patient is non-toxic appearing and is in no distress.? Patient is appropriate for outpatient treatment and follow-up. Differential Diagnosis Differential diagnosis: Likely upper respiratory infection, sinusitis, viral infection, pharyngitis and other (strep pharyngitis, cough) Lab Data Attestation: I reviewed the patient's lab results. Critical Care Time Critical Care Time Critical Care Time: No Discharge Plan Discharge Clinical Impression: Upper respiratory infection with cough and congestion Patient Disposition: Home, Self-Care Condition: Stable Instructions: Antibiotic Form, Upper Respiratory Infection (ED), Acute Cough (ED) Additional Instructions: Increase fluids especially juices and water Over-Increase fluids especially juices and water [id number] cough and cold medicine of your choice for your symptoms Tylenol or ibuprofen for any fever pain Zyrtec Claritin or Sulma daily for sinus drainage may include Coricidin brand Steroids as directed--take with food heat to the face 20-30 minutes 4-6 times a day for pain Salt water gargles, throat lozenges or throat sprays as desired Antibiotic as directed--finished the medication If your symptoms persist, change or worsen significantly before you can contact your personal physician then please, without delay, go to the emergency department for further evaluation. Follow-up with PCP in 7-10 days or sooner if needed Follow up with PCP soon in regards to your blood pressure which is elevated above threshold for referral. Blood pressure above 120/80 may indicate pre-hypertension. Prescriptions: New methylprednisolone [Medrol (Tl)] 4 mg tablets,dose pack See Rx Instructions .ROUTE .COMPLEX Qty: 21 0RF Rx Instructions: orally per package directions take with food azithromycin 250 mg tablet See Rx Instructions .ROUTE .COMPLEX Qty: 6 0RF Rx Instructions: For 250 mg dose pack: take 500 mg today (day 1), then 250 mg for 4 days (days 2-5) No Action biotin 5,000 mcg Tablet, Sublingual 5,000 mcg SUBLINGUAL DAILY cholecalciferol (vitamin D3) [Vitamin D3] 125 mcg (5,000 unit) Tablet 125 mcg PO DAILY calcium citrate 600 mg PO BID aspirin [Adult Aspirin Regimen] 81 mg tablet,delayed release (DR/EC) 81 mg PO DAILY minoxidil 5 % foam See Rx Instructions topical .COMPLEX Qty: 60 0RF Rx Instructions: apply 1 pump on scalp topically; losartan 100 mg tablet 100 mg PO DAILY Qty: 100 1RF atorvastatin 20 mg tablet See Rx Instructions .ROUTE .COMPLEX Qty: 100 3RF Dose Instruction: TAKE 1 TABLET BY MOUTH DAILY Rx Instructions: TAKE 1 TABLET BY MOUTH DAILY amlodipine 10 mg tablet See Rx Instructions .ROUTE .COMPLEX Qty: 100 1RF Dose Instruction: TAKE 1 TABLET BY MOUTH DAILY Rx Instructions: TAKE 1 TABLET BY MOUTH DAILY hydrochlorothiazide 25 mg tablet 25 mg PO DAILY Qty: 100 1RF pantoprazole 40 mg tablet,delayed release (DR/EC) See Rx Instructions .ROUTE .COMPLEX Qty: 100 2RF Dose Instruction: TAKE 1 TABLET BY MOUTH EVERY MORNING Rx Instructions: TAKE 1 TABLET BY MOUTH EVERY MORNING famotidine 40 mg tablet 40 mg PO QHS Qty: 90 1RF Follow-up/Referrals: Jose Martin Mendez DO [Primary Care Provider] - Time of Disposition: 15:14 Quality Mariano Coma Scale Eyes: Open Verbal: Oriented and Alert Motor: Follows Commands Mariano Coma Total Score: 15
[2024-03-15 14:50] VITALS: BP 149/75; PULSE 94; RESP 16; TEMP 36.8; O2SAT 99
== END 2024-03-15 15:22 | disposition home or self-care (01) ==
PROVIDERS: Emergency Provider Registered Nurse; PCP Family Medicine
DX: J06.9 Acute upper respiratory infection, unspecified (principal); R05.9 Cough, unspecified; Z87.891 Personal history of nicotine dependence; I10 Essential (primary) hypertension; K21.9 Gastro-esophageal reflux disease without esophagitis; E78.5 Hyperlipidemia, unspecified; Z79.82 Long term (current) use of aspirin
CPT/HCPCS: 99213; G0463

== ENCOUNTER 2024-03-19 08:53 | Outpatient (CLI) | payer MEDICARE, SELFPAY ==
--- NOTE | ~2024-03-19 | MMUS_ITS ---
EXAMINATION: MM diag aparna implant LT w skinny, US breast LT complete HISTORY: Follow-up left breast asymmetry TECHNIQUE: Additional 3-D tomosynthesis images of the left breast were performed and synthetic 2-D im ages were generated. CAD analysis was submitted and interpreted. High resolution complete left breast ultrasound was performed. COMPARISON: Comparison to multiple prior studies sequentially, with oldest reviewed study dated 12/2018. BREAST PARENCHYMAL COMPOSITION: Not dense: There are scattered areas of fibroglandular density. FINDINGS: MAMMOGRAPHIC FINDINGS: There is a left breast implant. There are no suspicious masses, calcifications or architectural disto rtion to suggest malignancy. ULTRASOUND: Complete US of all 4 quadrants of the left breast/s and retroareolar region was reviewed. At 10:00, 1 cm from the nipple there is a 5 mm cyst. No suspicious masses to suggest malignancy. IMPRESSION: 1. No evidence for malignancy in the left breast. 2. Routine yearly screening mammogram and regular clinical breast examination are recommended. BI-RADS Category 2: Benign finding(s). Reviewed, dictated and finalized at location [] TICS TESTING TECHNICIAN IMPRESSION: 1. No evidence for malignancy in the left breast. 2. Routine yearly screening mammogram and regular clinical breast examination a re recommended. BI-RADS Category 2: Benign finding(s).
== END 2024-03-19 08:54 | disposition home or self-care (01) ==
LOC: MICIMG 08:54
PROVIDERS: PCP Family Medicine; Visit Provider Family Medicine
DX: N64.53 Retraction of nipple (principal)
CPT/HCPCS: 76641; 77061; 77065; G0279

== ENCOUNTER 2024-08-27 11:00 | Outpatient (CLI) | payer MEDICARE, SELFPAY ==
[2024-08-27 12:32] LABS: Hematocrit 42.7 % (37.0-47.0); Hemoglobin 14.1 g/dL (12.0-15.0); Mean Corpuscular Hemoglobin 28.5 pg (26-34); Mean Corpuscular Volume 86.3 fl (80-100); Mean Platelet Volume 10.2 fl (7.4-10.4); Platelet Count Result 272 k/mm3 (150-375); Red Blood Count 4.95 M/mm3 (4.2-5.4); Red Cell Distribution Width 13.1 % (11.5-14.5); White Blood Count 6.5 K/mm3 (4.5-10.0)
[2024-08-27 14:00] LABS: Alanine Aminotransferase 22 U/L (6-35); Albumin Level 4.2 g/dL (3.5-5.1); Alkaline Phosphatase 91 U/L (38-126); Anion Gap 9 mmol/L (4-12); Aspartate Amino Transferase 30 U/L (14-36); Bilirubin,Total 0.4 mg/dL (0.2-1.3); Blood Urea Nitrogen 20 mg/dL (7-17); Calcium 9.8 mg/dL (8.4-10.2); Carbon Dioxide 26 mmol/L (22-30); Chloride 105 mmol/L (98-107); Cholesterol 141 mg/dL (0-200); Estimated Glomerular Filt Rate > 60; Glucose 88 mg/dL (65-110); HDL Direct 47 mg/dL; LDL Cholesterol Direct 59 mg/dL; Potassium 3.1 mmol/L (3.4-5.0); Sodium 140 mmol/L (137-145); Triglycerides 95 mg/dL (<150)
[2024-08-27 20:08] LABS: Free T4 Free Thyroxine 1.38 ng/dL (0.78-2.19)
[2024-08-27 20:44] LABS: Free T3 3.27 pg/mL (2.45-5.93)
[2024-08-30 09:34] LABS: Vitamin D 1,25 (OH)2 Total 38 pg/mL (18-72); Vitamin D2 1,25 (OH)2 <8 pg/mL; Vitamin D3 1,25 (OH)2 38 pg/mL
== END 2024-08-27 11:01 | disposition home or self-care (01) ==
LOC: ANHGOSHLAB 11:02
PROVIDERS: PCP Family Medicine; Visit Provider Family Medicine
DX: E78.00 Pure hypercholesterolemia, unspecified (principal); I10 Essential (primary) hypertension; E78.5 Hyperlipidemia, unspecified; E55.9 Vitamin D deficiency, unspecified; K21.9 Gastro-esophageal reflux disease without esophagitis; R79.89 Other specified abnormal findings of blood chemistry
CPT/HCPCS: 36415; 80053; 80061; 82652; 84439; 84443; 84481; 85027

== ENCOUNTER 2024-09-10 10:01 | Outpatient (CLI) | payer MEDICARE, SELFPAY ==
--- OUTSIDE RECORDS SUMMARY | 2024-09-10 10:36 | XMS_ITS | Patient Health Record ---
Author Organization [facility] Address [address] [place], [place] [id number] Care Team Providers Care Surgical Elastic Knitter Hand Frame Name Role Phone CASSANDRA ALEJO Unavailable [phone] Reason For Referral No Information Immunizations Vaccine Route Administration Date Status Comme nts Pfizer 1st Dose IM Intramuscular 05/23/2020 Administered Pfizer 2nd Dose IM Intramuscular 06/13/2020 Administered Plan Of Treatment No Information Insurance Providers Payer Name Payer Address Payer Phone Subscriber Number Group Number Insured Name Patient Relationship to Insured Coverage Start Date Coverage End Date [facility]) [address] [address] [place], [place] [id number] Genie Monge Self - patient is the insured
[2024-09-10 22:51] LABS: Alanine Aminotransferase 24 U/L (6-35); Albumin Level 4.5 g/dL (3.5-5.1); Alkaline Phosphatase 108 U/L (38-126); Anion Gap 12 mmol/L (4-12); Aspartate Amino Transferase 38 U/L (14-36); Bilirubin,Total 0.6 mg/dL (0.2-1.3); Blood Urea Nitrogen 18 mg/dL (7-17); Calcium 9.8 mg/dL (8.4-10.2); Carbon Dioxide 26 mmol/L (22-30); Chloride 103 mmol/L (98-107); Estimated Glomerular Filt Rate 56; Glucose 68 mg/dL (65-110); Potassium 3.4 mmol/L (3.4-5.0); Sodium 141 mmol/L (137-145)
== END 2024-09-10 10:02 | disposition home or self-care (01) ==
LOC: ANHGOSHLAB 10:02
PROVIDERS: PCP Family Medicine; Visit Provider Nurse Practitioner
DX: E87.6 Hypokalemia (principal)
CPT/HCPCS: 36415; 80053

== ENCOUNTER 2024-10-11 13:21 | Outpatient (CLI) | payer MEDICARE, SELFPAY ==
--- NOTE | ~2024-10-11 | MM_ITS ---
EXAMINATION: MM scrn aparna implant BI w skinny HISTORY: Screening mammogram TECHNIQUE: Craniocaudal and mediolateral oblique 3-D tomosynthesis images with implant displacement a nd synthetic 2-D images were generated. Craniocaudal and mediolateral oblique views of the breasts wi thout implant displacement were obtained using full field digital mammography. CAD analysis was submi tted and interpreted. COMPARISON: Comparison to multiple prior studies sequentially, with oldest reviewed study dated 06/2019. BREAST PARENCHYMAL COMPOSITION: Not dense: There are scattered areas of fibroglandular density. FINDINGS: There are developing subareolar asymmetries of the left breast. The right breast is stable without evidence for malignancy. IMPRESSION: 1. Developing subareolar asymmetries of the left breast. 2. Additional mammographic views and possible breast ultrasound are recommended. BI-RADS Category 0: Incomplete: Needs additional imaging evaluation. Reviewed, dictated and finalized at location A. IMPRESSION: 1. Developing subareolar asymmetries of the left breast. 2. Additional mammographic views and possible breast ultrasound are recommended . BI-RADS Category 0: Incomplete: Needs additional imaging evaluation.
== END 2024-10-11 13:22 | disposition home or self-care (01) ==
LOC: MICIMG 13:21
PROVIDERS: PCP Family Medicine; Visit Provider Family Medicine
DX: Z12.31 Encounter for screening mammogram for malignant neoplasm of breast (principal); R92.8 Other abnormal and inconclusive findings on diagnostic imaging of breast
CPT/HCPCS: 77063; 77067

== ENCOUNTER 2024-10-17 14:28 | Outpatient (CLI) | payer MEDICARE, SELFPAY ==
--- NOTE | ~2024-10-17 | DEXA_ITS ---
Bone Density Report Name: KIRA GRANGER Age: 74 Sex: Female Ethnicity: White Date of : 1950 Indication: osteopenia; height loss; Referring Provider: Shelbi Garcia Study: Bone densitometry was performed. Exam Date: October 17, 2024 Accession number: [id number] Bone Density: Region BMD T-score Z-score Classification AP Spine(L1-L4) 0.941 -1.0 1.5 Normal Femoral Neck (Left) 0.619 -2.1 0.0 Osteopenia Total Hip (Left) 0.717 -1.8 0.0 Osteopenia Femoral Neck (Right) 0.737 -1.0 1.1 Normal Total Hip (Right) 0.735 -1.7 0.1 Osteopenia Total Hip Mean 0.726 -1.8 0.1 Osteopenia World Health Organization criteria for BMD impression classify patients as: Normal (T-score at or above -1.0), Osteopenia (T-score between -1.0 and -2.5), or Osteoporosis (T-score at or below -2.5). 10-year Fracture Risk(1): Major Osteoporotic Fracture 13% Hip Fracture 3.5% Reported Risk Factors: [place] (), Neck BMD=0.619, BMI=28.1 (1) FRAX(R) Version 3.08. Fracture probability calculated for an untreated patient. Fracture probability may be lower if the patient has received treatment. Previous Exams: -- Region Exam Age BMD T-score BMD Change BMD Change Date g/cm2 vs Baseline vs Previous -- AP Spine (L1-L4) 10/17/2024 74 0.941 -1.0 7.0%* 3.9%* 10/12/2022 72 0.906 -1.3 3.0%* 3.4%* 07/18/2020 70 0.877 -1.5 -0.3% -0.3% 04/01/2010 59 0.879 -1.5 Total Hip(Left) 10/17/2024 74 0.717 -1.8 -11.4%# -0.5% 10/12/2022 72 0.721 -1.8 -11.0%# -5.1%* 07/18/2020 70 0.760 -1.5 -6.2%# 3.3% 04/01/2010 59 0.735 -1.7 -9.2%# -9.2%# 03/20/2002 51 0.810 -1.1 Total Hip(Right) 10/17/2024 74 0.735 -1.7 -8.0%# -3.2% 10/12/2022 72 0.760 -1.5 -5.0%# -3.1% 07/18/2020 70 0.784 -1.3 -1.9%# -1.5% 04/01/2010 59 0.796 -1.2 -0.4%# -0.4%# 03/20/2002 51 0.799 -1.2 -- *Denotes significance at 95% confidence level, LSC for AP Spine = 0.022 g/cm2, LSC for Total Hip = 0.027 g/cm2 # Denotes dissimilar scan types or analysis methods Clinical Information Provided by Patient: Has used the following medications: Vitamin D, Calcium Patient maximum height was 63 Menopause Age: 46 No regular weight bearing exercise Does not regularly consume dairy products Onset of menses at age 10 Number of children 2 Impression: The patient has low bone mass, based on the Left Femoral Neck T-score. The patient has an estimated ten-year risk of hip fracture of 3.5% and an estimated ten-year risk of major fracture of 13%, based on the WHO FRAX algorithm. No significant bone loss was observed. Discussion: BONE DENSITY IS LOW AT ONE OR MORE SKELETAL SITES. THE PATIENT'S BMD AND CLINICAL RISK FACTORS CONTRIBUTE TO THIS PATIENT'S INCREASED RISK OF FRACTURE. This patient's lowest T-score is low at one or more skeletal sites. It meets the World Health Organization's (WHO) criteria for ?low bone mass? (T-score between -1.0 and -2.5). The patient's 10-year risk of hip fracture as calculated by FRAX exceeds the threshold where pharmacological therapy is recommended by the National Osteoporosis Foundation (NOF). However, all treatment decisions require clinical judgment and consideration of individual patient factors, including patient preferences, comorbidities, previous drug use, risk factors not captured in the FRAX model (e.g., frailty, falls, vitamin D deficiency, increased bone turnover, interval significant decline in bone density) and possible under or overestimation of fracture risk by FRAX. The patient should follow a healthful lifestyle (good nutrition with adequate calcium and vitamin D, and appropriate weight-bearing exercise). Follow-Up: Consider a repeat BMD and Vertebral Fracture Assessment (VFA) exam in 2 years or sooner if medically necessary, to reassess this patient's status. Reported by: GRANT on 10/17/2024 2:40:00 PM. Reviewed, dictated and finalized at location A.
== END 2024-10-17 14:29 | disposition home or self-care (01) ==
LOC: MICIMG 14:28
PROVIDERS: PCP Family Medicine; Visit Provider Family Medicine
DX: Z78.0 Asymptomatic menopausal state (principal); M85.852 Other specified disorders of bone density and structure, left thigh; M85.851 Other specified disorders of bone density and structure, right thigh
CPT/HCPCS: 77080

== ENCOUNTER 2024-11-05 08:59 | Outpatient (CLI) | payer MEDICARE, SELFPAY ==
--- NOTE | ~2024-11-05 | MMUS_ITS ---
EXAMINATION: MM diag aparna implant LT w skinny, US breast LT limited HISTORY: Developing left breast asymmetries in the subareolar location TECHNIQUE: Additional 3-D tomosynthesis images of the left breast were performed and synthetic 2-D im ages were generated. CAD analysis was submitted and interpreted. High resolution Limited left breast ultrasound was performed. COMPARISON: Comparison to multiple prior studies sequentially, with oldest reviewed study dated 11/2021. BREAST PARENCHYMAL COMPOSITION: Dense: The breasts are heterogeneously dense, which may obscure small masses FINDINGS: MAMMOGRAPHIC FINDINGS: Subareolar asymmetries are less apparent with spot compression and mediolateral views with a serpigin ous configuration. No discrete mass. There are no suspicious calcifications. ULTRASOUND: Limited left breast ultrasound: There are multiple mildly prominent ducts in the subareolar location of the left breast. Left breast is present. No discrete masses are identified to suggest malignancy. IMPRESSION: 1. No evidence for malignancy in the left breast. Benign findings. 2. Routine yearly screening mammogram and regular clinical breast examination are recommended. BI-RADS Category 2: Benign finding(s). Reviewed, dictated and finalized at location [] IMPRESSION: 1. No evidence for malignancy in the left breast. Benign findings. 2. Routine yearly screening mammogram and regular clinical breast examination a re recommended. BI-RADS Category 2: Benign finding(s).
== END 2024-11-05 09:00 | disposition home or self-care (01) ==
LOC: MICIMG 09:00
PROVIDERS: PCP Family Medicine; Visit Provider Family Medicine
DX: N63.42 Unspecified lump in left breast, subareolar (principal); R92.8 Other abnormal and inconclusive findings on diagnostic imaging of breast
CPT/HCPCS: 76642; 77061; 77065; G0279

== ENCOUNTER 2025-01-08 09:35 | Outpatient (CLI) | payer MEDICARE, SELFPAY ==
--- OUTSIDE RECORDS SUMMARY | 2001-08-01 03:15 | XMS_ITS | Continuity of Care Document ---
Author Organization [facility] Address [id number] [place] [address] Exec utive [facility] [address] [place] [address] Phone Care Team Providers Care Desktop Support Technician Name Role Phone Sean Stein MD Unavailable Unavailable Advance Directives Directive Yes / No Effective Date File Name No Information Encounters Encounter Description Practice Location Reason(s) For Visit Diagnoses Date Provider Providers Copied on Encounter [facility], [id number] [place] [address] [address], [place], [place], [id number], [place] tel:[phone] [facility] No Information Emil Estrada. [address] [place] [address], [place] [address], [place], [address], [place]. tel:[phone] Family History Family Member Type Diagnosis Age At Onset No Information Payers Payer name Insurance type Covered alliance party ID Authoriza tion(s) No Information Social History Type Description Quantity Date Captured Comments Sex Female Smoking Status No Information Chief Complaint And Reason For Visit No Information Reason For Referral Reason For Referral No Information History Of Present Illness Encounter Date Complaint History Of Prese nt Illness No Information Functional Status Date Functional Assessmen t No Information Instructions Date Instruction Additional Infor mation No Information Assessments Type Assessment Date No Information Patient Care Teams Name Effective Dates (start - stop) Status Members No Information
[2025-01-08 19:36] LABS: Alanine Aminotransferase 22 U/L (6-35); Albumin Level 4.5 g/dL (3.5-5.1); Alkaline Phosphatase 112 U/L (38-126); Anion Gap 11 mmol/L (4-12); Aspartate Amino Transferase 37 U/L (14-36); Bilirubin,Total 0.6 mg/dL (0.2-1.3); Blood Urea Nitrogen 22 mg/dL (7-17); Calcium 9.4 mg/dL (8.4-10.2); Carbon Dioxide 25 mmol/L (22-30); Chloride 103 mmol/L (98-107); Cholesterol 156 mg/dL (0-200); Estimated Glomerular Filt Rate 45; Glucose 90 mg/dL (65-110); HDL Direct 50 mg/dL; Potassium 3.0 mmol/L (3.4-5.0); Sodium 139 mmol/L (137-145); Total Protein 7.8 g/dL (6.3-8.2); Triglycerides 121 mg/dL (<150)
[2025-01-08 19:45] LABS: Hematocrit 43.9 % (37.0-47.0); Hemoglobin 14.4 g/dL (12.0-15.0); Mean Corpuscular HGB Conc 32.8 g/dl (32-36); Mean Corpuscular Hemoglobin 28.4 pg (26-34); Mean Corpuscular Volume 86.6 fl (80-100); Platelet Count Result 311 k/mm3 (150-375); Red Blood Count 5.07 M/mm3 (4.2-5.4); White Blood Count 6.9 K/mm3 (4.5-10.0)
[2025-01-08 20:01] LABS: Free T4 Free Thyroxine 1.72 ng/dL (0.78-2.19)
[2025-01-08 20:17] LABS: Thyroid Stimulating Hormone 0.024 uIU/mL (0.465-4.680)
== END 2025-01-08 09:36 | disposition home or self-care (01) ==
LOC: ANHGOSHLAB 09:35
PROVIDERS: PCP Family Medicine; Visit Provider Family Medicine
DX: E78.5 Hyperlipidemia, unspecified (principal); I10 Essential (primary) hypertension; E55.9 Vitamin D deficiency, unspecified; R79.89 Other specified abnormal findings of blood chemistry; Z79.899 Other long term (current) drug therapy
CPT/HCPCS: 36415; 80053; 80061; 82306; 84439; 84443; 85027

== ENCOUNTER 2025-01-21 11:55 | Outpatient (CLI) | payer MEDICARE, SELFPAY ==
--- OUTSIDE RECORDS SUMMARY | 2001-08-01 03:15 | XMS_ITS | Continuity of Care Document ---
Author Organization [facility] Address [id number] [place] [address] Exec utive [facility] [address] [place] [address] Phone Care Team Providers Care Manager Video Name Role Phone Sean Stein MD Unavailable Unavailable Advance Directives Directive Yes / No Effective Date File Name No Information Encounters Encounter Description Practice Location Reason(s) For Visit Diagnoses Date Provider Providers Copied on Encounter [facility], [id number] [place] [address] [address], [place], [place], [id number], [place] tel:[phone] [facility] No Information Emil Estrada. [address] [place] [address], [place] [address], [place], [address], [place]. tel:[phone] Family History Family Member Type Diagnosis Age At Onset No Information Payers Payer name Insurance type Covered libertarian ID Authoriza tion(s) No Information Social History [...]
--- NOTE | ~2025-01-21 | CT_ITS ---
EXAMINATION:CT chest high resolution wo nd DATE: 01/21/2025 12:18 INDICATION: Diaphragmatic hernia without obstruction. TECHNIQUE: Computed tomography (CT) of the chest was performed without intravenous contrast. Automated exposure control and iterative reconstruction technique were employed. The dose-length product (DLP) was 146.19 mGy-cm. COMPARISON: Chest CT 05/19/2018 FINDINGS: The lungs demonstrate minimal atelectasis. No bronchiectasis or honeycombing. There is a 3 mm nodule in right upper lobe, likely benign. No pleural effusion. The heart size is normal. There are coronary artery calcifications. No pericardial effusion. There is a small sliding hiatal hernia. There are bilateral breast implants. There is mild thoracic spondylosis and severe lumbar spondylosis. IMPRESSION: 1. Small sliding hiatal hernia. Reviewed, dictated and finalized at location E.
--- OUTSIDE RECORDS SUMMARY | 2025-01-21 12:08 | XMS_ITS | Patient Health Record ---
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 Name Role Phone CASSANDRA ALEJO Unavailable [phone] Reason For Referral No Information Immunizations Vaccine Route Administration Date Status Comme nts Pfizer 1st Dose IM Intramuscular 05/23/2020 Administered Pfizer 2nd Dose IM Intramuscular 06/13/2020 Administered Plan Of Treatment No Information Insurance Providers Payer Name Payer Address Payer Phone Subscriber Number Group Number Insured Name Patient Relationship to Insured Coverage Start Date Coverage End Date [facility]) [address] [address] [place], [place] [id number] Genie Monge Self - patient is the insured
== END 2025-01-21 11:56 | disposition home or self-care (01) ==
PROVIDERS: PCP Family Medicine; Visit Provider Family Medicine
DX: K44.9 Diaphragmatic hernia without obstruction or gangrene (principal); R05.9 Cough, unspecified; R06.2 Wheezing
CPT/HCPCS: 71250

== ENCOUNTER 2025-02-01 09:28 | Outpatient (CLI) | payer MEDICARE, SELFPAY ==
[2025-02-01 19:21] LABS: Anion Gap 8 mmol/L (4-12); Blood Urea Nitrogen 16 mg/dL (7-17); Calcium 9.4 mg/dL (8.4-10.2); Carbon Dioxide 28 mmol/L (22-30); Chloride 104 mmol/L (98-107); Estimated Glomerular Filt Rate 55; Glucose 80 mg/dL (65-110); Potassium 3.1 mmol/L (3.4-5.0); Sodium 140 mmol/L (137-145)
[2025-02-01 19:40] LABS: Free T4 Free Thyroxine 1.59 ng/dL (0.78-2.19)
[2025-02-01 19:58] LABS: Thyroid Stimulating Hormone 1.430 uIU/mL (0.465-4.680)
== END 2025-02-01 09:29 | disposition home or self-care (01) ==
PROVIDERS: PCP Family Medicine; Visit Provider Family Medicine
DX: R79.89 Other specified abnormal findings of blood chemistry (principal); Z79.899 Other long term (current) drug therapy
CPT/HCPCS: 36415; 80048; 84439; 84443